=== PATIENT | female | born 1990 | race Caucasian/White ===

== ENCOUNTER 2023-08-24 16:36 | Emergency (ER) | payer OTHER, SELFPAY ==
[2023-08-24 17:02] VITALS: BP 171/119; PULSE 93; RESP 16; TEMP 36.6; O2SAT 99; BMI 33.8
--- NOTE | 2023-08-24 19:13 | W.ED.WOUNDLC ---
HPI - Wound/Laceration General: Chief Complaint: Wound/Laceration Stated Complaint: left hand cut Time Seen by Provider: 08/24/23 19:12 History of Present Illness: 33-year-old female comes in today for injury to the left middle finger. Patient was at work when her finger got caught in the chain avulsing the tip of it. Patient was seen in the urgent care clinic and referred to the ER for further evaluation and treatment. Patient appears nontoxic. Patient appears in no acute distress. Review of Systems General: Reports: 10 or more systems reviewed and unremarkable except in HPI and below Musc: Reports: extremity pain and extremity swelling Skin/Breast: Reports: new lesions PFSH ED PFSH: Social History Smoking and tobacco/nicotine status: current every day tobacco/nicotine user Physical Exam Const: COMMON NORMALS: alert HENMT: COMMON NORMALS: normocephalic HEAD & SCALP: normocephalic Neck/C-Spine: COMMON NORMALS: full ROM Resp: COMMON NORMALS: normal respiratory effort and clear to auscultation bilaterally AUSCULTATION: clear to auscultation bilaterally Cardio: COMMON NORMALS: regular rate RATE: regular rate Back/Pelvis: COMMON NORMALS: thoracic and lumbar spine normal to inspection Extremity: LEFT UPPER EXTREMITY: Yes hand & digits (Distal tip of the left index finger avulsed, nailbed intact) Left hand and digits: Yes inspection, Yes palpation, Yes ROM and Yes neurovascular exam Neuro: SENSORIUM/ORIENTATION: Yes alert Skin: TRAUMA: laceration (Avulsion left middle finger distal tip) avulsion Course Vital Signs: Vital signs: Vital Signs Temperature 97.8 F 08/24/23 17:02 Pulse Rate 93 08/24/23 17:02 Respiratory Rate 16 08/24/23 17:02 Blood Pressure 171/119 08/24/23 17:02 Pulse Oximetry 99 08/24/23 17:02 Oxygen Delivery Me thod Room Air 08/24/23 17:02 MDM - Wound/Laceration Medical Decision Making 33-year-old female comes in today for injury to the distal left middle finger. Patient was at her place of employment when her finger got caught in a chain. On exam patient has an avulsion of the tip of the distal finger. Patient has distal nail damage but no cuticle injury. The bed of the nail appears in tact. Differential diagnosis includes fracture, fingertip avulsion, foreign body, need for prophylaxis tetanus. Tetanus was updated. Patient was given 1 g of cefazolin. Consulted orthopedics on-call who recommended patient see other Dr. Estrada or hand specialist in [place]. Reviewed this with patient recommended orthopedics with Dr. Estrada. Patient will follow-up with them tomorrow and schedule appointment within the week. Patient be started on antibiotics and medications for pain. Patient reported understanding of care plan and need for follow-up or return to the ER. XR interpretation done by ED provider, pending radiology final review Discharge Plan Discharge Patient Disposition: Home Clinical Impression: Avulsion of finger tip Qualifiers: Encounter type: initial encounter Qualified Code(s): S61.209A - Unspecified open wound of unspecified finger without damage to nail, initial encounter Condition: Stable Prescriptions: New amoxicillin-pot clavulanate 875-125 mg tablet 1 tab PO BID Qty: 14 0RF hydrocodone-acetaminophen 5-325 mg tablet 1 tab PO Q6H PRN (Reason: pain (scale score 7-10)) Qty: 10 0RF bacitracin 500 unit/gram ointment 1 applic topical DAILY Qty: 28 0RF No Action Adacel(Tdap Adolesn/Adult)(PF) 2 Lf-(2.5-5-3-5 mcg)-5Lf/0.5 mL syringe 0.5 ml IM ONCE Qty: 0.5 0RF ketorolac 30 mg/mL solution 30 mg IM ONCE Qty: 1 0RF Discharge Orders: Discharge ED (Routine); Ordered 08/24/23 Ordered By: Jaden Garza Referrals: Jeff Estrada DO [Physician] - Discharge Diet: Usual diet Discharge Activity: Limit activity as instructed Patient Instructions: Finger Amputation (ED), Opioid Safety Activity Restrictions/Additional Instructions: Keep wound clean and dry. Apply bacitracin ointment to the wound with each dressing change to avoid dressing to sticking to the wound. Limit activity to the hand. Follow-up with Workmen's Comp. physician or orthopedics in 1 week for recheck of wound. Use medications as directed. Return to ER for high fever greater than 100.4, increasing redness or swelling, or new concerns. Stand Alone Forms: Work/School Release Coding Level of Care Code ED [employer] for [employer]
--- NOTE | 2023-08-24 19:24 | XRR_ITS ---
PROCEDURE INFORMATION: Exam: XR Left Hand Exam date and time: 08/24/2023 7:29 PM Age: 33 years old Clinical indication: Pain; Hand; Left; Additional info: Finger avulsion TECHNIQUE: Imaging protocol: Radiologic exam of the left hand. Views: 3 or more views. COMPARISON: No relevant prior studies available. FINDINGS: Bones/joints: Avulsion fracture of the tuft of the distal 3rd phalanx. Soft tissues: Avulsion injury of the tip of the 3rd digit. XR/XR hand LT min 3V* [id number] IMPRESSION: Avulsion injury of the distal 3rd digit with fracture of the tuft of the 3rd distal phalanx.
[2023-08-24] MEDS: HYDROcodone-acetaminophen 7.5-325 mg Tablet 1 TAB PO (19:47)
[2023-08-24] MEDS: ceFAZolin 1,000 MG in water for injection-sterile 2.5 ML 2 MG IM (19:48)
[2023-08-24 20:25] VITALS: BP 171/119; PULSE 93; RESP 16; O2SAT 99
--- NOTE | 2023-08-25 08:19 | PC.SOCIAL ---
Addendum entered by Christine Lomeli RN 09/05/23 15:44: Ortho reports that patient's referral needs referred out to [facility]. Attempted to reach patient to get preference of [facility]; unable to reach patient. Original Note: Ortho Referral Referral to clinic at this time. Clinic to contact patient with appt date/time.
--- NOTE | 2023-09-05 15:47 | PC.SOCIAL ---
Patient returned phone call and states that she is awaiting a disc of imaging to be sent to [facility] prior to the hand specialist to be able to see her. Encouraged that if she needs any assistance to call me back directly and I will assist however I can.
== END 2023-08-24 20:26 | disposition home or self-care (01) ==
PROVIDERS: Emergency Provider Nurse Practitioner Family
DX: S61.203A Unspecified open wound of left middle finger without damage to nail, initial encounter (principal); W31.89XA Contact with other specified machinery, initial encounter; F17.210 Nicotine dependence, cigarettes, uncomplicated; Y99.0 Civilian activity done for income or pay; Z23 Encounter for immunization
CPT/HCPCS: 73130; 90715; 96372; 99284; J0690